=== PATIENT | female | born 1985 | race Two or more races ===

== ENCOUNTER 2017-12-28 15:28 | Inpatient (IN) | payer MEDICAID ==
[~2017-12-28] VITALS: Ht 170.2 cm; Wt 108.6 kg
[~2017-12-28 15:28] MED LIST: DOCU-131 PO; IBUP-1222 PO; OXYC-302 PO
[2017-12-28] MEDS ORDERED: PREN1TAB60 PO (15:44)
[2017-12-28] MEDS ORDERED: OXYTOCIN 30U/ 0.9% NaCL 500ML 500 ML IV ONE (16:08)
[2017-12-28] MEDS ORDERED: MISOPROSTOL 200 MCG TABLET ONE (16:09)
[2017-12-28] MEDS ORDERED: NEWBORN KIT ONE (16:09)
[2017-12-28] MEDS ORDERED: CLINDAMYCIN PMX 900MG/50ML 50 ML ONE (16:09)
[2017-12-28] MEDS ORDERED: OXYTOCIN 30U/ 0.9% NaCL 500ML 500 ML ONE ×2 (16:09→21:28)
[2017-12-28] MEDS: LACTATED RINGERS 1,000 ML IV SCH ×2 (16:25→17:38)
[2017-12-28] MEDS ORDERED: CLINDAMYCIN PMX 900MG/50ML 50 ML IVPB SCH (16:30)
[2017-12-28] MEDS ORDERED: FENTANYL PF 100 MCG/2ML IVPush PRN (16:30)
[2017-12-28] MEDS ORDERED: ONDANSETRON 2MG/ML, 2ML IVPush PRN (16:30)
[2017-12-28 16:39] LABS: BASOPHILS # (AUTO) 0.03 x10^3/uL (0-0.1); BASOPHILS % (AUTO) 0 % (0-1); EOSINOPHILS # (AUTO) 0.04 x10^3/uL (0-0.4); EOSINOPHILS % (AUTO) 0 % (1-7); LYMPHOCYTES # (AUTO) 2.21 x10^3/uL (1-3.4); LYMPHOCYTES % (AUTO) 19 % (22-44); MD NO; MEAN CORPUSCULAR HEMOGLOBIN 30.9 pg (27.0-34.8); MEAN CORPUSCULAR HGB CONC 33.2 g/dL (32.4-35.8); MEAN PLATELET VOLUME 8.1 fL (7.4-10.4); MONOCYTES # (AUTO) 0.82 x10^3/uL (0.2-0.8); MONOCYTES % (AUTO) 7 % (2-9); NEUTROPHILS % (AUTO) 74 % (42-75); PLATELET COUNT 216 x10^3/uL (130-400); RED BLOOD COUNT 4.29 x10^6/uL (3.82-5.3); RED CELL DISTRIBUTION WIDTH 15.6 % (9.6-15.2)
[2017-12-28] MEDS ORDERED: BUPIVACAINE 0.25% ONE (17:37)
[2017-12-28] MEDS ORDERED: FENTANYL/BUPIV./NS/PF 250 ML EPIDCONT ONE (17:38)
[2017-12-28] MEDS ORDERED: FENTANYL/BUPIV./NS/PF 250 ML EPIDCONT SCH (18:02)
[2017-12-28] MEDS ORDERED: LACTATED RINGERS 1,000 ML IV SCH (18:02)
[2017-12-28] MEDS ORDERED: LACTATED RINGERS 1,000 ML IVBOLUS PRN (18:30)
[2017-12-28] MEDS ORDERED: EPHEDRINE 50 MG/ML, 1ML IVPush PRN (18:30)
[2017-12-28] MEDS ORDERED: MISOPROSTOL 200 MCG TABLET PR PRN (19:00)
[2017-12-28] MEDS ORDERED: MAGNESIUM HYDROXIDE 8%, 30ML UDC PO PRN (19:00)
[2017-12-28] MEDS ORDERED: ACETAMINOPHEN 325 MG TABLET PO PRN ×2 (19:00)
[2017-12-28] MEDS ORDERED: CALCIUM CARBONATE 500 MG TAB.CHEW PO PRN (19:00)
[2017-12-28] MEDS ORDERED: DIPH,PERTUSS(ACELL),TET VAC/PF NC IM-VACC PRN (19:00)
[2017-12-28] MEDS ORDERED: ONDANSETRON 2MG/ML, 2ML IV PRN (19:00)
[2017-12-28] MEDS ORDERED: RHOGAM FROM BLOOD BANK 1 NOTE EA IM/IV ONE (19:00)
[2017-12-28] MEDS ORDERED: OXYcodone/APAP 5/325MG TABLET PO PRN ×2 (19:00)
[2017-12-28] MEDS ORDERED: MEASLES,MUMPS&RUBELLA VACC/PF 0.5 ML SQ PRN (19:00)
[2017-12-28] MEDS ORDERED: ONDANSETRON ODT 4 MG PO PRN (19:30)
[2017-12-28] MEDS ORDERED: IBUPROFEN 600 MG TABLET ONE (20:29)
[2017-12-28] MEDS: IBUPROFEN 600 MG TABLET PO PRN (20:37)
[2017-12-28] MEDS: OXYTOCIN 30U/ 0.9% NaCL 500ML 500 ML IV SCH (21:30)
[2017-12-28 22:50] VITALS: BP 113/69
[2017-12-29 00:30] VITALS: BP 122/68
[2017-12-29] MEDS: OXYTOCIN 30U/ 0.9% NaCL 500ML 500 ML IV SCH ×2 (04:56→05:16)
[2017-12-29 05:24] LABS: BASOPHILS # (AUTO) 0.05 x10^3/uL (0-0.1); BASOPHILS % (AUTO) 0 % (0-1); EOSINOPHILS # (AUTO) 0.03 x10^3/uL (0-0.4); EOSINOPHILS % (AUTO) 0 % (1-7); LYMPHOCYTES % (AUTO) 19 % (22-44); MD NO; MEAN CORPUSCULAR HEMOGLOBIN 31.5 pg (27.0-34.8); MEAN CORPUSCULAR HGB CONC 33.9 g/dL (32.4-35.8); MEAN CORPUSCULAR VOLUME 92.9 fL (80-100); MONOCYTES # (AUTO) 1.04 x10^3/uL (0.2-0.8); MONOCYTES % (AUTO) 7 % (2-9); NEUTROPHILS # (AUTO) 10.57 x10^3/uL (1.8-6.8); NEUTROPHILS % (AUTO) 73 % (42-75); PLATELET COUNT 183 x10^3/uL (130-400); RED BLOOD COUNT 3.63 x10^6/uL (3.82-5.3); RED CELL DISTRIBUTION WIDTH 15.6 % (9.6-15.2)
[2017-12-29 07:35] VITALS: BP 140/75
[2017-12-29] MEDS: IBUPROFEN 600 MG TABLET PO PRN ×2 (07:38→16:22)
[2017-12-29] MEDS: PRENATAL VIT/IRON/FA 1 EACH TABLET PO SCH (07:38)
[2017-12-29] MEDS: DOCUSATE 100 MG CAPSULE PO PRN (07:38)
[2017-12-29 12:20] VITALS: BP 128/78
[2017-12-29 16:24] VITALS: BP 139/82
[2017-12-29 20:00] VITALS: BP 126/75
[2017-12-30] MEDS: PRENATAL VIT/IRON/FA 1 EACH TABLET PO SCH (08:06)
[2017-12-30] MEDS: DOCUSATE 100 MG CAPSULE PO PRN (08:06)
[2017-12-30] MEDS ORDERED: IBUP-1222 PO (15:16)
== END 2017-12-30 16:20 | disposition home or self-care (01) | DRG 775 ==
LOC: LDOP 15:28 → LDIP 16:12 → 2NW 22:41
PROVIDERS: ADMIT Obstetrics & Gynecology; ATTEND Obstetrics & Gynecology
PROC: 10E0XZZ Delivery of Products of Conception, External Approach (ICD-10-PCS; principal; 2017-12-28)
PROC: 10907ZC Drainage of Amniotic Fluid, Therapeutic from Products of Conception, Via Natural or Artificial Opening (ICD-10-PCS; 2017-12-28)
PROC: 3E0R3BZ Introduction of Anesthetic Agent into Spinal Canal, Percutaneous Approach (ICD-10-PCS; 2017-12-28)
PROC: 00HU33Z Insertion of Infusion Device into Spinal Canal, Percutaneous Approach (ICD-10-PCS; 2017-12-28)
PROC: 30233S1 Transfusion of Nonautologous Globulin into Peripheral Vein, Percutaneous Approach (ICD-10-PCS; 2017-12-29)
DX: O24.420 Gestational diabetes mellitus in childbirth, diet controlled (principal); O99.824 Streptococcus B carrier state complicating childbirth; Z37.0 Single live birth; Z88.0 Allergy status to penicillin; Z3A.39 39 weeks gestation of pregnancy; Z23 Encounter for immunization
CPT/HCPCS: 36415; 82962; 85025; 85461; 86850; 86900; J2790; J2590; J7120

== ENCOUNTER → 2018-06-21 | Outpatient (CLI) | payer MEDICAID ==
[~2018-06-21] MED LIST changes: +NONE PER PT; +PREN1TAB60 PO
== END | disposition home or self-care (01) ==
LOC: STAR 13:45
PROVIDERS: ATTEND Student in an Organized Health Care Education/Training Program
DX: Z02.9 Encounter for administrative examinations, unspecified (principal)

== ENCOUNTER 2018-06-26 05:32 | Day surgery (SDC) | payer MEDICAID ==
[~2018-06-26] VITALS: Ht 170.2 cm; Wt 106.7 kg
[2018-06-26] MEDS ORDERED: LACTATED RINGERS 1,000 ML IV SCH (06:18)
[2018-06-26 06:22] VITALS: BP 121/85
[2018-06-26 06:54] LABS: HCG UR SG 1.017 (1.003-1.030)
[2018-06-26] MEDS ORDERED: METOCLOPRAMIDE 5 MG/ML, 2ML ONE (07:25)
[2018-06-26] MEDS ORDERED: PROPOFOL 10 MG/ML, 20ML ONE (07:25)
[2018-06-26] MEDS ORDERED: ONDANSETRON 2MG/ML, 2ML ONE (07:25)
[2018-06-26] MEDS ORDERED: DEXAMETHASONE 4 MG/ML, 1ML ONE (07:25)
[2018-06-26] MEDS ORDERED: MIDAZOLAM 1 MG/ML, 2ML ONE (07:26)
[2018-06-26] MEDS ORDERED: FENTANYL PF 100 MCG/2ML ONE (07:26)
[2018-06-26] MEDS ORDERED: ONDANSETRON 2MG/ML, 2ML IVPush PRN (08:30)
[2018-06-26] MEDS ORDERED: HYDROmorphone 1 MG/ML, 1ML IV PRN (08:30)
[2018-06-26] MEDS ORDERED: LABETALOL 5MG/ML, 20ML IV PRN (08:30)
[2018-06-26] MEDS ORDERED: MEPERIDINE/PF 25MG/0.5ML IVPush PRN (08:30)
[2018-06-26] MEDS ORDERED: FENTANYL PF 100 MCG/2ML IV PRN (08:30)
[2018-06-26] MEDS ORDERED: MIDAZOLAM 1 MG/ML, 2ML IV PRN (08:30)
[2018-06-26] MEDS ORDERED: OXYcodone 5 MG/5 ML ORAL.SOL UDC PO PRN (08:30)
== END 2018-06-26 11:45 | disposition home or self-care (01) ==
LOC: OR 05:32
PROVIDERS: ATTEND Student in an Organized Health Care Education/Training Program
DX: N20.0 Calculus of kidney (principal); N30.00 Acute cystitis without hematuria; Z88.0 Allergy status to penicillin
CPT/HCPCS: 52332; 74018; 76000; 81025; C1769; C2617; J0290; J1100; J1580; J2250; J2405; J2704; J2765; J3010; J7120

== ENCOUNTER → 2018-07-18 | Outpatient (CLI) | payer MEDICAID ==
[2018-07-18 14:58] LABS: MICROSCOPIC INDICATED
== END | disposition home or self-care (01) ==
LOC: STAR 14:14
PROVIDERS: ATTEND Student in an Organized Health Care Education/Training Program
DX: Z01.818 Encounter for other preprocedural examination (principal); N20.0 Calculus of kidney
CPT/HCPCS: 81001; 87086

== ENCOUNTER 2018-07-29 15:20 | Day surgery (SDC) | payer MEDICAID ==
[~2018-07-29] VITALS: Ht 170.2 cm; Wt 107.0 kg
[2018-07-29] MEDS ORDERED: LACTATED RINGERS 1,000 ML IV SCH (15:38)
[2018-07-29 15:57] VITALS: BP 118/75
[2018-07-29 16:39] LABS: HCG UR SG 1.019 (1.003-1.030)
[2018-07-29 16:40] LABS: MICROSCOPIC INDICATED
[2018-07-29] MEDS ORDERED: MIDAZOLAM 1 MG/ML, 2ML ONE (16:55)
[2018-07-29] MEDS ORDERED: FENTANYL PF 250 MCG/5ML ONE (16:55)
[2018-07-29] MEDS ORDERED: GENTAMICIN 80 MG/2 ML ONE (16:55)
[2018-07-29] MEDS ORDERED: AMPICILLIN 2 GM ONE (16:55)
[2018-07-29] MEDS ORDERED: LABETALOL 5MG/ML, 20ML IV PRN (18:00)
[2018-07-29] MEDS ORDERED: EPHEDRINE 50 MG/ML, 1ML IM PRN (18:00)
[2018-07-29] MEDS ORDERED: ACETAMINOPHEN 325 MG TABLET PO PRN (18:00)
[2018-07-29] MEDS ORDERED: HALOPERIDOL 5 MG/ML IV PRN (18:00)
[2018-07-29] MEDS ORDERED: ALBUTEROL/IPRATROPIUM 2.5MG/0.5MG, 3 ML NPPB PRN (18:00)
[2018-07-29] MEDS ORDERED: PROMETHAZINE 25 MG SUPP PR PRN (18:00)
[2018-07-29] MEDS ORDERED: HYDROmorphone 1 MG/ML, 1ML IV PRN (18:00)
[2018-07-29] MEDS ORDERED: hydrALAzine 20 MG/ML, 1ML IV PRN (18:00)
[2018-07-29] MEDS ORDERED: FENTANYL PF 100 MCG/2ML IV PRN (18:00)
[2018-07-29] MEDS ORDERED: SCOPOLAMINE PATCH, 1.5MG PATCH.TD72 TD PRN (18:00)
[2018-07-29] MEDS ORDERED: OXYcodone 5 MG/5 ML ORAL.SOL UDC PO PRN (18:00)
[2018-07-29] MEDS ORDERED: MEPERIDINE/PF 25MG/0.5ML IVPush PRN (18:00)
[2018-07-29] MEDS ORDERED: MIDAZOLAM 1 MG/ML, 2ML IV PRN (18:00)
[2018-07-29] MEDS ORDERED: ONDANSETRON 2MG/ML, 2ML IV PRN (18:00)
[2018-07-29] MEDS ORDERED: DEXAMETHASONE 4 MG/ML, 1ML ONE (18:15)
[2018-07-29] MEDS ORDERED: ONDANSETRON 2MG/ML, 2ML ONE (18:15)
[2018-07-29] MEDS ORDERED: PROPOFOL 10 MG/ML, 20ML ONE (18:15)
[2018-07-29] MEDS ORDERED: ACETAMINOPHEN 650 MG/20.3 ML UDC ONE (18:46)
[2018-07-29] MEDS ORDERED: OXYcodone 5 MG/5 ML ORAL.SOL UDC ONE (18:46)
== END 2018-07-29 21:35 | disposition home or self-care (01) ==
LOC: OR 15:20 → 4NOR 19:27 → OR 21:35
PROVIDERS: ATTEND Student in an Organized Health Care Education/Training Program
DX: E83.59 Other disorders of calcium metabolism (principal); N29 Other disorders of kidney and ureter in diseases classified elsewhere; N30.80 Other cystitis without hematuria; Z88.0 Allergy status to penicillin; Z88.8 Allergy status to other drugs, medicaments and biological substances; Z98.890 Other specified postprocedural states
CPT/HCPCS: 52356; 74018; 76001; 81001; 81025; 87086; C1758; C1769; C2617; J0290; J1100; J1580; J2250; J2405; J2704; J3010; J7120; G0378